=== PATIENT | male | born 1950 | race Caucasian/White ===

== ENCOUNTER 2017-05-07 10:35 | Inpatient (IN) | payer MEDICARE, OTHER ==
[~2017-05-07] VITALS: Ht 172.7 cm; Wt 74.8 kg
[2017-05-07] MEDS ORDERED: ASPIRIN 81 MG TAB.CHEW PO ONE (11:30)
[2017-05-07] MEDS ORDERED: NITROGLYCERIN SUBLINGUAL 0.4 MG BOTTLE OF 25. SL PRN ×2 (11:30→13:45)
[2017-05-07 11:34] LABS: BASO % 0 % (0-3); EOS % 0 % (0-3); HEMATOCRIT 46.3 % (39.0-53.0); LYMPH # 0.9 x10^3/uL (1.0-4.8); LYMPH % 5 % (24-48); MEAN CORPUSCULAR HEMOGLOBIN 32 pg (25-35); MEAN CORPUSCULAR HGB CONC 35 g/dL (31-37); MEAN CORPUSCULAR VOLUME 94 fL (79-100); MONO # 1.3 x10^3/uL (0.0-1.1); MONO % 6 % (0-9); NEUT # 18.4 x10^3uL (1.8-7.7); NEUT % 89 % (31-73); PLATELET COUNT 303 x10^3/uL (140-400); RED BLOOD COUNT 4.94 x10^6/uL (4.30-5.70); RED CELL DISTRIBUTION WIDTH 13.4 % (11.5-14.5); WHITE BLOOD COUNT 20.6 x10^3/uL (4.0-11.0)
--- NOTE | 2017-05-07 11:42 | RAD ---
Indication: Fever, cough, shortness of breath for one week. History of COPD. Technique: PA and lateral views of the chest Comparison: None Findings: Median sternotomy noted. Heart is normal in size. Lungs are hyperinflated. Focal consolidation is seen in the inferior aspect of the left upper lobe. Right lung is clear. No pneumothorax. Blunting of the left costophrenic angle noted. Visualized bony thorax is within normal limits. Impression: Findings suggesting left upper lobe pneumonia with small left pleural effusion.
--- NOTE | 2017-05-07 11:46 | PHYS DOC ---
General Chief Complaint: SHORTNESS OF BREATH Stated Complaint: COUGH,CONGESTION,FEVER,HX OF COPD Time Seen by MD: 11:06 Source: patient Exam Limitations: no limitations Problems: History of Present Illness Initial Comments Patient is a 66-year-old male who comes to the ED complaining of fever and cough. Patient states that for the past 3 days he's had worsening nonproductive cough and chest congestion, fever and chills, and dyspnea on exertion. Patient also states that throughout this 3 day. He's had left upper anterior chest pain worse with coughing, no new leg swelling, nausea vomiting diaphoresis arm or neck symptoms. Patient has history of COPD as well as coronary artery disease, he continues to smoke 1-1/2 packs per day and is fearful that he may have influenza or pneumonia. He denies any new or progressive chest pain complaints the last 12-24 hours and was trying to make it through the weekend without coming to the emergency department and follow-up with his doctor on Tuesday. Today the discomfort with his coughing had grown so severe that he asked his to bring him to the emergency department. Patient takes aspirin daily no other anticoagulation. ED vitals: 100.6, 105, 20, 140/61, 95% room air Timing/Duration: other Severity: severe Modifying Factors: worse with movement, improves with rest Associated Symptoms: chest pain, cough, fever/chills, malaise, shortness of breath Allergies: Coded Allergies: Ujevweg-Qlz-Fve Reductase Inhibitor (Verified Allergy, Unknown, 05/07/17) Past Medical History Medical History: COPD, CVA/TIA/stroke, heart disease, high cholesterol, hypertension, vascular disease Surgical History: other (4 vessel CABG 2000, bilateral lower extremity bypass grafts) Social History Smoker: cigarettes Alcohol: none Drugs: none Review of Systems Constitutional: see HPI Respiratory: see HPI Cardiovascular: see HPI Gastrointestinal: denies abdominal pain, denies nausea, denies vomiting Genitourinary: denies dysuria, denies frequency, denies hematuria Musculoskeletal: see HPI, denies back pain, denies joint swelling Psychiatric/Neurological: denies headache, pre-existing deficit (right-sided weakness from prior CVA.) Hematologic/Lymphatic: denies blood clots, denies easy bleeding, denies easy bruising Physical Exam General Appearance: no apparent distress Ear, Nose, Throat: hearing grossly normal, normal ENT inspection, normal pharynx Neck: non-tender, supple Respiratory: chest non-tender, no respiratory distress, decreased breath sounds (R base), accessory muscle use, rhonchi (JACOB), wheezing (diffusely) Cardiovascular: normal peripheral pulses, tachycardia Gastrointestinal: non tender, soft Extremities: normal range of motion, non-tender, normal inspection Neurologic/Psychiatric: alert, normal mood/affect, oriented x 3, other (mild R weakness (CVA sequelae)) Skin: normal color, warm/dry Orders, Labs, Meds EKG: Sinus tachycardia 116 bpm, PVC, PAC, no significant ST segment elevation interpreted by me. PATIENT: AYDEE CARPIO ACCOUNT: [id number] : 1950 LOCATION: ER AGE: 66 SEX: M EXAM STATUS: REG ER ORD. PHYSICIAN: NARCISO GIBBS DO REASON: fever, cough, h/o COPD PROCEDURE: CHEST PA & LATERAL Indication: Fever, cough, shortness of breath for one week. History of COPD. Technique: PA and lateral views of the chest Comparison: None Findings: Median sternotomy noted. Heart is normal in size. Lungs are hyperinflated. Focal consolidation is seen in the inferior aspect of the left upper lobe. Right lung is clear. No pneumothorax. Blunting of the left costophrenic angle noted. Visualized bony thorax is within normal limits. Impression: Findings suggesting left upper lobe pneumonia with small left pleural effusion. DICTATED AND SIGNED BY: ALVERTO ALARCON DO DATE: 05/07/17 1137 CC: DIMA JUARES MD; NARCISO GIBBS DO ~ 1157: Left upper lobe pneumonia noted, patient also wheezing diffusely without physical exam evidence of acute CHF. Rocephin and Zithromax ordered intravenously as well as Solu-Medrol, DuoNeb and CTA of the chest due to d- dimer 2.3. PATIENT: AYDEE CARPIO ACCOUNT: [id number] : 1950 LOCATION: ER AGE: 66 SEX: M EXAM STATUS: REG ER ORD. PHYSICIAN: NARCISO GIBBS DO REASON: cp, elev d-dimer PROCEDURE: CT ANGIOGRAPHY CHEST Indication: Shortness of breath with cough for one week. History of COPD. Technique: CT angiogram of the chest with 70 mL of Omnipaque 300 with multiplanar MIP reformats. Comparison: None Findings: Diagnostic quality AP study. There are no central, segmental or subsegmental filling defects in the pulmonary arteries. Enlarged mediastinal and hilar lymph nodes noted. Index lymph nodes as follows: Left paratracheal lymph node measuring 1.5 x 1.6 cm. Aortopulmonary recess lymph node measuring 1.1 x 1.9 cm. Left hilar lymph node measuring 1.6 x 2.4 cm Second left hilar lymph node measuring 2.1 x 1.5 cm. Neck bases clear. No axillary adenopathy. Heart is normal in size. Coronary artery calcifications noted. No pericardial effusion. Small left pleural effusion. Patchy areas of consolidation is seen in the left upper lobe and in the lingula with at bronchograms. Mild centrilobular emphysema noted. 3 mm nodule is seen in the right apex (series 4 image 12). Scattered patchy opacities are seen in the right lower lobe (series 4 image 97) (series 4 image 102). Hepatic steatosis noted. Otherwise, visualized sections through the liver, spleen, gallbladder, pancreas are within normal limits. Adrenal glands show nodular thickening which may be secondary to adenomatous hyperplasia. There is a 6 cm simple appearing cyst in the visualized left kidney. 2.1 x 1.2 cm superficial well-circumscribed low attenuating lesion is seen in the anterior left chest likely sebaceous or epidermoid cyst. Allograft no suspicious bony lesions. Impression: 1. No PE. 2. Left upper lobe pneumonia with small left pleural effusion. Few Patchy opacities in the right lower lobe may be secondary to multifocal pneumonia or aspiration. 3. Mediastinal and hilar lymphadenopathy likely reactive. Follow-up CT chest after medical therapy recommended to show resolution. 4. Hepatic steatosis. PQRS Compliance Statement: One or more of the following individualized dose reduction techniques were utilized for this examination: 1. Automated exposure control 2. Adjustment of the mA and/or kV according to patient size 3. Use of iterative reconstruction technique DICTATED AND SIGNED BY: ALVERTO ALARCON DO DATE: 05/07/17 2373 CC: DIMA JUARES MD; NARCISO GIBBS DO ~ Cultures obtained, white blood cells 20.6, bands 3, d-dimer 2.3, BUN 16, creatinine 1.4, lactic acid 1.9, troponin less than 0.017, BNP 961, influenza A and B both negative 1310: Patient rechecked, he is breathing much easier after Solu-Medrol, DuoNeb, and guaifenesin with codeine syrup. I discussed the need for inpatient treatment and although he is reluctant because of tomorrow Super Bowl he is agreeable to admission and further evaluation and treatment as necessary. 1338: I discussed patient with Dr. Jernigan superintendent container terminal hospitalist who accepts patient for admission. Is available he requests ICU but will accept telemetry inpatient admission if needed. Impressions: Multilobar pneumonia Chest pain with history of coronary artery disease COPD exacerbation Renal insufficiency Tobaccoism Departure Time of Disposition: 13:39 Disposition: 09 ADMITTED INPATIENT Condition: IMPROVED NARCISO GIBBS DO May 07, 2017 11:46
[2017-05-07 11:48] LABS: ALBUMIN 3.1 g/dL (3.4-5.0); ALBUMIN/GLOBULIN RATIO 0.6 (1.0-1.7); CALCIUM 9.2 mg/dL (8.5-10.1); CREATININE 1.4 mg/dL (0.7-1.3); GFR 50.4; POTASSIUM 3.9 mmol/L (3.5-5.1); TOTAL BILIRUBIN 1.5 mg/dL (0.2-1.0); TOTAL PROTEIN 8.1 g/dL (6.4-8.2)
[2017-05-07] MEDS ORDERED: cefTRIAXone SODIUM 1 GM VIAL IV ONE (11:57)
[2017-05-07] MEDS ORDERED: IV NORMAL SALINE 50ML 50 ML ONE (11:57)
[2017-05-07 12:00] LABS: % BANDS 3 % (0-9); % LYMPHS 4 % (24-48); % MONOS 7 % (0-10); % SEGS 86 % (35-66); PLT ESTIMATE ADEQUATE (ADEQUATE)
[2017-05-07] MEDS ORDERED: IPRATRPIUM/ALBUTEROL 0.5/2.5MG 3 ML NEBU. NEB ONE (12:00)
[2017-05-07] MEDS ORDERED: guaiFENesin/CODEINE 100mg/10mg 5 ML LIQUID PO ONE (12:00)
[2017-05-07] MEDS ORDERED: AZITHROMYCIN 500 MG in IV NORMAL SALINE 250ML 250 ML IV ONE (12:00)
[2017-05-07] MEDS ORDERED: methylPREDNISolone SOD SUCC PF 125 MG/2 ML VIAL. IV ONE (12:00)
[2017-05-07 12:01] LABS: TOXIC GRANULATION PRESENT; TOXIC VACUOLATION PRESENT
[2017-05-07 12:02] LABS: POLYCHROMASIA SLIGHT
[2017-05-07 12:12] LABS: INFLUENZA A PATIENT NEGATIVE (NEGATIVE); INFLUENZA B PATIENT NEGATIVE (NEGATIVE)
[2017-05-07] MEDS ORDERED: IOHEXOL 300 MG/ML 75 ML VIAL. IV ONE (12:15)
[2017-05-07] MEDS ORDERED: IV NORMAL SALINE 250ML 250 ML ONE (12:36)
[2017-05-07] MEDS ORDERED: AZITHROMYCIN 500 MG VIAL. IV ONE (12:37)
--- NOTE | 2017-05-07 13:02 | RAD ---
Indication: Shortness of breath with cough for one week. History of COPD. Technique: CT angiogram of the chest with 70 mL of Omnipaque 300 with multiplanar MIP reformats. Comparison: None Findings: Diagnostic quality AP study. There are no central, segmental or subsegmental filling defects in the pulmonary arteries. Enlarged mediastinal and hilar lymph nodes noted. Index lymph nodes as follows: Left paratracheal lymph node measuring 1.5 x 1.6 cm. Aortopulmonary recess lymph node measuring 1.1 x 1.9 cm. Left hilar lymph node measuring 1.6 x 2.4 cm Second left hilar lymph node measuring 2.1 x 1.5 cm. Neck bases clear. No axillary adenopathy. Heart is normal in size. Coronary artery calcifications noted. No pericardial effusion. Small left pleural effusion. Patchy areas of consolidation is seen in the left upper lobe and in the lingula with at bronchograms. Mild centrilobular emphysema noted. 3 mm nodule is seen in the right apex (series 4 image 12). Scattered patchy opacities are seen in the right lower lobe (series 4 image 97) (series 4 image 102). Hepatic steatosis noted. Otherwise, visualized sections through the liver, spleen, gallbladder, pancreas are within normal limits. Adrenal glands show nodular thickening which may be secondary to adenomatous hyperplasia. There is a 6 cm simple appearing cyst in the visualized left kidney. 2.1 x 1.2 cm superficial well-circumscribed low attenuating lesion is seen in the anterior left chest likely sebaceous or epidermoid cyst. Allograft no suspicious bony lesions. Impression: 1. No PE. 2. Left upper lobe pneumonia with small left pleural effusion. Few Patchy opacities in the right lower lobe may be secondary to multifocal pneumonia or aspiration. 3. Mediastinal and hilar lymphadenopathy likely reactive. Follow-up CT chest after medical therapy recommended to show resolution. 4. Hepatic steatosis. PQRS Compliance Statement: One or more of the following individualized dose reduction techniques were utilized for this examination: 1. Automated exposure control 2. Adjustment of the mA and/or kV according to patient size 3. Use of iterative reconstruction technique
[2017-05-07] MEDS ORDERED: ONDANSETRON PF 4 MG/2 ML VIAL. IV PRN (13:45)
[2017-05-07] MEDS ORDERED: guaiFENesin/CODEINE 100mg/10mg 5 ML LIQUID PO PRN (13:45)
[2017-05-07] MEDS ORDERED: ACETAMINOPHEN 325 MG TABLET PO PRN (13:45)
[2017-05-07 14:19] VITALS: BP 148/70
[2017-05-07 14:22] VITALS: BP 148/70
[2017-05-07] MEDS ORDERED: LISI1TAB5 PO (14:31)
[2017-05-07] MEDS ORDERED: ASPI325T8 PO (14:31)
[2017-05-07] MEDS ORDERED: FLU VACC QS2017-18 (36MOS+)/PF 0.5 ML SYRINGE. VAX IM ONE (15:30)
[2017-05-07] MEDS ORDERED: chlordiazePOXIDE HCL 25 MG CAPSULE PO PRN (16:15)
[2017-05-07] MEDS: IPRATRPIUM/ALBUTEROL 0.5/2.5MG 3 ML NEBU. NEB SCH ×2 (16:45→21:25)
[2017-05-07] MEDS: cefTRIAXone IV Push 1 GM VIAL. IVP SCH (18:02)
--- NOTE | 2017-05-07 20:36 | HP ---
ADMIT DATE: 05/07/2017 HISTORY OF PRESENT ILLNESS: The patient is a 66-year-old male patient who came to the Emergency Room with a complaint of fever and cough that has been going on for the last 3 days with worsening nonproductive cough and chest congestion, fever, chills, dyspnea on exertion and throughout the last 3 days, he also complained of left upper anterior chest pain, worse with coughing, but denied any leg swelling. Denied any phlegm or hemoptysis. The patient stated that he is fearful that he might have influenza or pneumonia. He was basically evaluated in the Emergency Room, was found to have marked leukocytosis with a white cell count of 20,000, elevated D-dimer. His serology was negative for influenza A and B and had had a CT angiogram, which basically showed no pulmonary embolism, has left upper lobe pneumonia and small left pleural effusion, has few patchy opacities in the right lower lobe, may be secondary to multifocal pneumonia or aspiration. He has also mediastinal hilar lymphadenopathy, likely reactive as well as hepatic steatosis. The radiologist recommended a followup CT chest after medical therapy to show resolution. The patient was admitted with COPD exacerbation, community-acquired pneumonia and here he is to continue with IV antibiotic, steroid treatment, as well as bronchodilator. He is a heavy alcohol drinker and continues to smoke heavily up to 1-1/2 pack a day. PAST MEDICAL HISTORY: Significant for COPD, hypertension, hyperlipidemia, coronary artery disease status post CABG and peripheral vascular disease, status post stenting, as well as bilateral lower extremity bypass grafting. He has also had CVA and TIA with right-sided weakness. He continued to have residual right-sided hemiparesis and also he is unsteady on his gait because of that. PAST SURGICAL HISTORY: Significant for percutaneous coronary intervention with stent deployment and also stent deployment to both lower extremity arteries. He has coronary artery disease status post CABG and also bilateral femoropopliteal bypass graft surgery. He has had jaw surgery, and colonoscopy. ALLERGIES: HE IS INTOLERANT TO STATINS, SEVERE ACHES, PAINS AND ARTHRALGIAS, ARTHRITIS and is unable to walk because it is severe with Crestor according to him. MEDICATIONS: He is currently on following medications: He is on aspirin 325 mg once a day, lisinopril/hydrochlorothiazide 20/12.5 mg 1 tablet once a day. FAMILY HISTORY: He has 1 older sister at the age of 58 because of the CVA. His father at the age of 60 because of myocardial infarction. Mother at the age of 60 because of stroke. He has one brother younger, has lung cancer, hypertension and one sister still alive, but does not keep in touch with her. SOCIAL HISTORY: He is , has no children. He smokes 1-1/2 pack a day, smokes multi cigars. He drinks mostly hard liquor on a daily basis; however, he denied any delirium tremens or alcohol withdrawal seizures. He is retired from the [employer]. REVIEW OF SYSTEMS: The patient denied any blurring of vision, cataract, glaucoma or macular degeneration. Denied any earache, tinnitus or sensorineural deafness. Denied any nosebleeds, stuffy nose or postnasal drip. Denied any sore throat, sore tongue, toothache, hoarseness of voice or difficulty swallowing. Denied any nausea, vomiting, diarrhea or constipation. Denied any hematemesis, melena or hematochezia. Denied any dysuria, frequency or hematuria. He did complain of chest pain that has resolved. He has cough, which is mostly dry, nonproductive, did complain of shortness of breath, fever or chills. Denied any dizziness, lightheadedness, or vertigo. He has residual weakness in the right side using a cane and he is unsteady and has fallen sometimes. PHYSICAL EXAMINATION: GENERAL: On arrival to the Emergency Room, he looked well and was clearly in no apparent respiratory distress, pale, but no jaundice, cyanosis or thyromegaly. No jugular venous distention. No lower limb edema. VITAL SIGNS: His heart rate was 105, blood pressure was 129/80, temperature was 100.6, respiratory rate was 20, and oxygen saturation was 95% on room air. HEENT: Showed normocephalic, atraumatic. NECK: Supple. HEART: Showed normal first and second heart sounds with no gallop, rub or murmur. CHEST: Shows central trachea, equal bilateral expansion, air entry, vesicular breath sounds. I could not really appreciate any crepitation or rhonchi. ABDOMEN: Slightly distended, soft, nontender. No guarding or rigidity. No organomegaly. Hernial orifice intact. Bowel sounds normal. NEUROLOGIC: He is awake, alert, responding appropriately. Cranial nerves intact. EXTREMITIES: He moves extremities without difficulty, ambulates with a cane. LABORATORY DATA: On arrival showed a white cell count of 20,600, hemoglobin was 16, hematocrit 46, MCV 94 and platelet count of 303,000 with a manual differential showed 89% polymorphs, 5% lymphocytes, and 6% monocytes. Serum sodium was 134, potassium 3.9, chloride 94, bicarbonate 29, anion gap of 11, BUN 16, creatinine 1.4, estimated GFR was 50 mL per minute, his glucose 132, lactic acid was 1.9. Calcium was 9.2. Total bilirubin 1.5. AST, ALT, alkaline phosphatase were normal. His beta natriuretic peptide was high at 961. Total protein was 8.1. His albumin was 3.1, lipase was 114. His D-dimer was 2.30. His influenza A and B were negative. He has a chest x-ray, which basically showed the patient has mediastinal sternotomy noted. Heart is normal in size. Lungs are hyperinflated. Focal consolidation seen in the inferior aspect of the left upper lobe. Right lung is clear, no pneumothorax. Blunting of left costophrenic angle is noted. Visualized bony thorax is within normal limits. The CT angio showed no evidence of pulmonary embolism; however, he has left upper lobe pneumonia and small pleural effusion, few patchy opacities in the right lower lobe, may be secondary to multifocal pneumonia or aspiration. He has mediastinal hilar lymphadenopathy, likely reactive. Followup CT scan after medical family therapy recommended showed resolution. He has also hepatic steatosis. IMPRESSION: In summary, this is a 66-year-old male patient who was admitted with a community-acquired pneumonia, chronic obstructive pulmonary disease exacerbation, tobaccoism, alcoholism and mild renal insufficiency. PLAN: To continue with IV antibiotic. Continue with his home medication and I will add steroids and bronchodilators as well as Singulair and Pulmicort and will repeat all his lab works tomorrow and decide the further management according to his response. MLEVA LAKHANI MD DR: PORSHA/satish JOB#: [id number] / [id number]
[2017-05-07] MEDS: MONTELUKAST 10 MG TABLET. PO SCH (20:38)
[2017-05-07] MEDS: methylPREDNISolone SOD SUCC PF 40 MG/ML VIAL. IV SCH (20:38)
[2017-05-07 20:50] VITALS: BP 127/70
[2017-05-07 22:54] VITALS: BP 117/56
[2017-05-08] MEDS: methylPREDNISolone SOD SUCC PF 40 MG/ML VIAL. IV SCH ×2 (05:21→13:59)
[2017-05-08] MEDS: IPRATRPIUM/ALBUTEROL 0.5/2.5MG 3 ML NEBU. NEB SCH ×2 (05:24→10:58)
[2017-05-08 06:41] VITALS: BP 145/69
[2017-05-08 08:03] LABS: BASO % 0 % (0-3); EOS % 0 % (0-3); HEMATOCRIT 43.9 % (39.0-53.0); HEMOGLOBIN 15.2 g/dL (13.0-17.5); LYMPH # 0.5 x10^3/uL (1.0-4.8); LYMPH % 2 % (24-48); MEAN CORPUSCULAR HEMOGLOBIN 32 pg (25-35); MEAN CORPUSCULAR HGB CONC 35 g/dL (31-37); MEAN CORPUSCULAR VOLUME 94 fL (79-100); MONO # 0.5 x10^3/uL (0.0-1.1); MONO % 2 % (0-9); NEUT # 18.8 x10^3uL (1.8-7.7); NEUT % 95 % (31-73); PLATELET COUNT 279 x10^3/uL (140-400); RED BLOOD COUNT 4.69 x10^6/uL (4.30-5.70); RED CELL DISTRIBUTION WIDTH 13.7 % (11.5-14.5); WHITE BLOOD COUNT 19.8 x10^3/uL (4.0-11.0)
[2017-05-08 08:22] LABS: ALBUMIN 2.7 g/dL (3.4-5.0); ALBUMIN/GLOBULIN RATIO 0.7 (1.0-1.7); CREATININE 1.3 mg/dL (0.7-1.3); GFR 54.9; TOTAL BILIRUBIN 0.4 mg/dL (0.2-1.0); TOTAL PROTEIN 6.7 g/dL (6.4-8.2)
[2017-05-08 08:27] LABS: POTASSIUM 2.9 mmol/L (3.5-5.1)
[2017-05-08] MEDS: ASPIRIN 325 MG TABLET PO SCH (08:39)
[2017-05-08] MEDS: hydroCHLOROthiazide 12.5 MG CAPSULE PO SCH (08:39)
[2017-05-08] MEDS: LISINOPRIL 20 MG TABLET PO SCH (08:39)
[2017-05-08] MEDS: FOLIC ACID 1 MG TABLET PO SCH (08:40)
[2017-05-08] MEDS: MULTIVITAMIN with MINERAL TABLET. PO SCH (08:40)
[2017-05-08] MEDS: THIAMINE IM 200 MG/2 ML VIAL. IM SCH (08:41)
[2017-05-08] MEDS ORDERED: NON FORMULARY ITEM (Lisinopril/Hydrochlorothiazide (Lisinopril-Hctz 20-12.5 Mg Tab) 1 TAB) PO SCH (09:00)
[2017-05-08] MEDS ORDERED: POTASSIUM CHLORIDE 20 MEQ TABLET.ER. PO ONE ×2 (09:00→10:00)
[2017-05-08 11:02] VITALS: BP 127/73
[2017-05-08 14:45] VITALS: BP 116/64
[2017-05-08] MEDS ORDERED: AZITHROMYCIN 500 MG in IV NORMAL SALINE 250ML 250 ML IV SCH (15:00)
[2017-05-08] MEDS: cefTRIAXone IV Push 1 GM VIAL. IVP SCH (16:18)
[2017-05-08] MEDS ORDERED: IPRATRPIUM/ALBUTEROL 0.5/2.5MG 3 ML NEBU. NEB PRN (16:30)
[2017-05-08 19:24] VITALS: BP 135/67
[2017-05-08] MEDS ORDERED: FLU VACC QS2017-18 (36MOS+)/PF 0.5 ML SYRINGE. VAX IM ONE (20:00)
[2017-05-08] MEDS: LACTOBACILLUS RHAMNOSUS GG 1 CAPSULE. PO SCH (21:15)
[2017-05-08] MEDS: POTASSIUM CHLORIDE 20 MEQ TABLET.ER. PO SCH (21:15)
[2017-05-08] MEDS: MONTELUKAST 10 MG TABLET. PO SCH (21:15)
[2017-05-08] MEDS ORDERED: MELATONIN 3 MG TABLET PO PRN (22:15)
[2017-05-08 23:00] VITALS: BP 153/51
[2017-05-09] MEDS ORDERED: methylPREDNISolone SOD SUCC PF 40 MG/ML VIAL. IV SCH (02:00)
[2017-05-09 05:28] VITALS: BP 111/62
[2017-05-09 06:44] LABS: HEMATOCRIT 43.2 % (39.0-53.0); HEMOGLOBIN 14.7 g/dL (13.0-17.5); RED BLOOD COUNT 4.57 x10^6/uL (4.30-5.70); RED CELL DISTRIBUTION WIDTH 13.5 % (11.5-14.5); WHITE BLOOD COUNT 22.9 x10^3/uL (4.0-11.0)
[2017-05-09 06:52] LABS: ALBUMIN 2.4 g/dL (3.4-5.0); ALBUMIN/GLOBULIN RATIO 0.6 (1.0-1.7); CALCIUM 8.8 mg/dL (8.5-10.1); CREATININE 1.1 mg/dL (0.7-1.3); GFR 66.6; POTASSIUM 4.5 mmol/L (3.5-5.1); TOTAL BILIRUBIN 0.2 mg/dL (0.2-1.0); TOTAL PROTEIN 6.7 g/dL (6.4-8.2)
[2017-05-09] MEDS ORDERED: LEVO750T31 PO (08:42)
[2017-05-09] MEDS ORDERED: PRED-220 PO (08:42)
[2017-05-09 08:55] VITALS: BP 111/62
[2017-05-09] MEDS: ASPIRIN 325 MG TABLET PO SCH (08:55)
[2017-05-09] MEDS: LACTOBACILLUS RHAMNOSUS GG 1 CAPSULE. PO SCH (08:55)
[2017-05-09] MEDS: LISINOPRIL 20 MG TABLET PO SCH (08:55)
[2017-05-09] MEDS: MULTIVITAMIN with MINERAL TABLET. PO SCH (08:55)
[2017-05-09] MEDS: FOLIC ACID 1 MG TABLET PO SCH (08:55)
[2017-05-09] MEDS: hydroCHLOROthiazide 12.5 MG CAPSULE PO SCH (08:55)
[2017-05-09] MEDS: POTASSIUM CHLORIDE 20 MEQ TABLET.ER. PO SCH (08:56)
[2017-05-09] MEDS: THIAMINE IM 200 MG/2 ML VIAL. IM SCH (08:56)
--- NOTE | 2017-05-09 11:20 | PN ---
DATE: 05/08/2017 SUBJECTIVE: The patient is resting, slightly propped up in bed, in no apparent distress, has no more chest pain. He continued to have mild chest tightness and wheezing. Generally, feeling much better. His potassium was low this morning at 2.9. PHYSICAL EXAMINATION: GENERAL: When I examined him, he looked well and was clearly in no apparent respiratory distress, no pallor, jaundice, cyanosis, or thyromegaly. No jugular venous distension. No limb edema. VITAL SIGNS: His heart rate was 100, blood pressure 116/64, temperature was 98.4, respiratory rate 20, and oxygen saturation was 92% on room air. HEAD, EYES, EARS, NOSE AND THROAT: Showed he is normocephalic, atraumatic. NECK: Supple. HEART: Showed normal first and second heart sounds with no gallop, rub or murmur. CHEST: Clear to auscultation. Chest showed central trachea, equal bilateral expansion, air entry, ____ few bilateral scattered rhonchi, more so on the left than the right. I could not appreciate any crepitation. ABDOMEN: Slightly distended, soft, nontender. NEUROLOGIC: He was awake, alert, responding appropriately. Cranial nerves intact. He moves extremities without difficulty. He ambulates without assistance or assistive devices. LABORATORY DATA: Showed a white cell count of 19,800, hemoglobin 15, hematocrit 44, MCV 94 and platelet count 279,000. His serum sodium this morning was 140, potassium 2.9, chloride 100, bicarbonate 27, anion gap of 13, BUN 29, creatinine 1.3, estimated GFR was 54 mL per minute. His glucose was 197, calcium was 9. Total bilirubin, AST, ALT, alkaline phosphatase were normal. He has 3 sets of cardiac enzymes that were negative. His serum triglycerides were 117, total cholesterol was 161, LDL was 115, VLDL was 23, and HDL was 23, ratio was 7. ASSESSMENT: 1. Community-acquired pneumonia for which he is on IV Rocephin and Zithromax. 2. Chronic obstructive pulmonary edema exacerbation for which he is on bronchodilator and methylprednisolone. 3. Acute kidney injury and his other problems include hypertension, hyperlipidemia, has history of peripheral vascular disease status post bilateral lower extremity bypass grafting, coronary artery disease status post coronary artery bypass graft surgery. He has also alcohol dependence and nicotine dependence. PLAN: To continue with IV Rocephin and Zithromax. Continue to start replenishing his potassium. We already gave him about 80 mEq a day and continue with alcohol withdrawal protocol and if he remains stable tomorrow, we can discharge him home on oral antibiotic and tapering course of steroids. MELVA LAKHANI MD DR: PORSHA/satish JOB#: [id number] / [id number]
--- NOTE | 2017-05-09 15:55 | PDOC3 ---
Discharge Summary Visit Information Date of Admission: May 07, 2017 Date of Discharge: May 09, 2017 Final Diagnosis Problems Medical Problems: (1) COPD exacerbation Status: Acute (2) Pneumonia Status: Acute 1. Community-acquired pneumonia for which he is on IV Rocephin and Zithromax. MUltifocal pneumonia 2. Chronic obstructive pulmonary edema exacerbation for which he is on bronchodilator and methylprednisolone. 3. Acute kidney injury and his other problems include hypertension, hyperlipidemia, has history of peripheral vascular disease status post bilateral lower extremity bypass grafting, coronary artery disease status post coronary artery bypass graft surgery. He has also alcohol dependence and nicotine dependence. 4 mediastinal and hilar adenopathy 5. sever protein calorie malnutirtion 6. acute hypoxic respiratory 7. elevated d dimer 8 hypokalemia-resolved Problems: Brief Hospital Course Allergies Allergies Coded Allergies Type Severity Reaction Last Updated Verified Fsmztwp-Vvx-Vac Reductase Inhibitor Allergy Unknown 05/07/17 Yes Vital Signs Vital Signs Date Time Temp Pulse Resp B/P (MAP) Pulse Ox O2 Delivery O2 Flow Rate FiO2 05/09/17 08:55 66 111/62 05/09/17 08:00 Room Air 05/09/17 05:28 97.6 20 97 05/08/17 19:24 2.0 Lab Results Laboratory Tests Test 05/07/17 18:55 05/08/17 07:30 05/08/17 14:45 05/09/17 06:14 Troponin I Quantitative < 0.017 ng/mL (0-0.055) < 0.017 ng/mL (0-0.055) White Blood Count 19.8 x10^3/uL (4.0-11.0) 22.9 x10^3/uL (4.0-11.0) Red Blood Count 4.69 x10^6/uL (4.30-5.70) 4.57 x10^6/uL (4.30-5.70) Hemoglobin 15.2 g/dL (13.0-17.5) 14.7 g/dL (13.0-17.5) Hematocrit 43.9 % (39.0-53.0) 43.2 % (39.0-53.0) Mean Corpuscular Volume 94 fL (79-100) 95 fL (79-100) Mean Corpuscular Hemoglobin 32 pg (25-35) 32 pg (25-35) Mean Corpuscular Hemoglobin Concent 35 g/dL (31-37) 34 g/dL (31-37) Red Cell Distribution Width 13.7 % (11.5-14.5) 13.5 % (11.5-14.5) Platelet Count 279 x10^3/uL (140-400) 316 x10^3/uL (140-400) Neutrophils (%) (Auto) 95 % (31-73) Lymphocytes (%) (Auto) 2 % (24-48) Monocytes (%) (Auto) 2 % (0-9) Eosinophils (%) (Auto) 0 % (0-3) Basophils (%) (Auto) 0 % (0-3) Neutrophils # (Auto) 18.8 x10^3uL (1.8-7.7) Lymphocytes # (Auto) 0.5 x10^3/uL (1.0-4.8) Monocytes # (Auto) 0.5 x10^3/uL (0.0-1.1) Eosinophils # (Auto) 0.0 x10^3/uL (0.0-0.7) Basophils # (Auto) 0.0 x10^3/uL (0.0-0.2) Sodium Level 140 mmol/L (136-145) 142 mmol/L (136-145) Potassium Level 2.9 mmol/L (3.5-5.1) 3.4 mmol/L (3.5-5.1) 4.5 mmol/L (3.5-5.1) Chloride Level 100 mmol/L (98-107) 106 mmol/L (98-107) Carbon Dioxide Level 27 mmol/L (21-32) 28 mmol/L (21-32) Anion Gap 13 (6-14) 8 (6-14) Blood Urea Nitrogen 29 mg/dL (8-26) 39 mg/dL (8-26) Creatinine 1.3 mg/dL (0.7-1.3) 1.1 mg/dL (0.7-1.3) Estimated GFR (Cockcroft-Gault) 54.9 66.6 BUN/Creatinine Ratio 22 (6-20) 35 (6-20) Glucose Level 197 mg/dL (70-99) 136 mg/dL (70-99) Calcium Level 9.0 mg/dL (8.5-10.1) 8.8 mg/dL (8.5-10.1) Total Bilirubin 0.4 mg/dL (0.2-1.0) 0.2 mg/dL (0.2-1.0) Aspartate Amino Transf (AST/SGOT) 13 U/L (15-37) 11 U/L (15-37) Alanine Aminotransferase (ALT/SGPT) 18 U/L (16-63) 19 U/L (16-63) Alkaline Phosphatase 95 U/L (46-116) 81 U/L (46-116) Total Protein 6.7 g/dL (6.4-8.2) 6.7 g/dL (6.4-8.2) Albumin 2.7 g/dL (3.4-5.0) 2.4 g/dL (3.4-5.0) Albumin/Globulin Ratio 0.7 (1.0-1.7) 0.6 (1.0-1.7) Triglycerides Level 117 mg/dL (0-150) Cholesterol Level 161 mg/dL (0-200) LDL Cholesterol, Calculated 115 mg/dL (0-100) VLDL Cholesterol, Calculated 23 mg/dL (0-40) Non-HDL Cholesterol Calculated 138 mg/dL (0-129) HDL Cholesterol 23 mg/dL (40-60) Cholesterol/HDL Ratio 7.0 Brief Hospital Course Mr. Martinez is a 66 old [sex] who presented with [ ] ADMIT DATE: 05/07/2017 HISTORY OF PRESENT ILLNESS: The patient is a 66-year-old male patient who came to the Emergency Room with a complaint of fever and cough that has been going on for the last 3 days with worsening nonproductive cough and chest congestion, fever, chills, dyspnea on exertion and throughout the last 3 days, he also complained of left upper anterior chest pain, worse with coughing, but denied any leg swelling. Denied any phlegm or hemoptysis. The patient stated that he is fearful that he might have influenza or pneumonia. He was basically evaluated in the Emergency Room, was found to have marked leukocytosis with a white cell count of 20,000, elevated D-dimer. His serology was negative for influenza A and B and had had a CT angiogram, which basically showed no pulmonary embolism, has left upper lobe pneumonia and small left pleural effusion, has few patchy opacities in the right lower lobe, may be secondary to multifocal pneumonia or aspiration. He has also mediastinal hilar lymphadenopathy, likely reactive as well as hepatic steatosis. The radiologist recommended a followup CT chest after medical therapy to show resolution. The patient was admitted with COPD exacerbation, community-acquired pneumonia and here he is to continue with IV antibiotic, steroid treatment, as well as bronchodilator. He is a heavy alcohol drinker and continues to smoke heavily up to 1-1/2 pack a day. He was treated with IV steroids. breathing treatments and Iv antibiotics. He improved daily and was ready for discharge on 05/09 Discharge Information Condition at Discharge: Improved, Stable Disposition/Orders: D/C to Home Dischare Medications Current Medications Aspirin (Children'S Aspirin) 324 mg 1X ONCE PO Last administered on 05/07/17at 11:39; Start 05/07/17 at 11:30; Stop 05/07/17 at 11:31; Status DC Nitroglycerin (Nitrostat) 0.4 mg PRN Q5MIN PRN SL CP RATING > 1/10 Last administered on 05/07/17at 11:41; Start 05/07/17 at 11:30; Stop 05/07/17 at 13:44; Status DC Ceftriaxone Sodium 1 gm/ Sodium Chloride 50 ml @ 100 mls/hr 1X ONCE IV Last administered on 05/07/17at 12:03; Start 05/07/17 at 12:00; Stop 05/07/17 at 12:29; Status DC Azithromycin 500 mg/Sodium Chloride 250 ml @ 250 mls/hr 1X ONCE IV Last administered on 05/07/17at 12:59; Start 05/07/17 at 12:00; Stop 05/07/17 at 12:59; Status DC Albuterol/ Ipratropium (Duoneb) 3 ml 1X ONCE NEB Last administered on at 12:53; Start 05/07/17 at 12:00; Stop 05/07/17 at 12:02; Status DC Methylprednisolone Sodium Succinate (SOLU-Medrol 125MG VIAL) 125 mg 1X ONCE IV Last administered on 05/07/17at 12:55; Start 05/07/17 at 12:00; Stop 05/07/17 at 12:02; Status DC Guaifenesin/ Codeine Phosphate (Robitussin Ac) 5 ml 1X ONCE PO Last administered on 05/07/17at 12:57; Start 05/07/17 at 12:00; Stop 05/07/17 at 12:02; Status DC Sodium Chloride 50 ml @ As Directed STK-MED ONCE .ROUTE ; Start 05/07/17 at 11:57 ; Stop 05/07/17 at 11:58; Status DC Ceftriaxone Sodium (Rocephin) 1 gm STK-MED ONCE IV ; Start 05/07/17 at 11:57; Stop 05/07/17 at 11:58; Status DC Iohexol (Omnipaque 300 Mg/ml) 75 ml 1X ONCE IV ; Start 05/07/17 at 12:15; Stop 05/07/17 at 12:16; Status DC Sodium Chloride 250 ml @ As Directed STK-MED ONCE .ROUTE ; Start 05/07/17 at 12: 36; Stop 05/07/17 at 12:37; Status DC Azithromycin (Zithromax) 500 mg STK-MED ONCE IV ; Start 05/07/17 at 12:37; Stop 05/07/17 at 12:38; Status DC Ondansetron HCl (Zofran) 4 mg PRN Q4HRS PRN IV NAUSEA/VOMITING; Start 05/07/17 at 13:45; Stop 05/08/17 at 13:44; Status DC Acetaminophen (Tylenol) 650 mg PRN Q4HRS PRN PO FEVER Last administered on at 20:38; Start 05/07/17 at 13:45; Stop 05/08/17 at 13:44; Status DC Nitroglycerin (Nitrostat) 0.4 mg PRN Q5MIN PRN SL CHEST PAIN; Start 05/07/17 at 13:45; Stop 05/08/17 at 13:44; Status DC Albuterol/ Ipratropium (Duoneb) 3 ml RTQID NEB Last administered on 05/08/17at 10 :58; Start 05/07/17 at 16:00; Stop 05/08/17 at 15:59; Status DC Guaifenesin/ Codeine Phosphate (Robitussin Ac) 5 ml PRN Q6HRS PRN PO COUGH Last administered on 05/08/17at 22:36; Start 05/07/17 at 13:45; Stop 05/09/17 at 10: 08; Status DC Influenza Virus Vaccine Quadrival (Fluarix Quad [id number] Syringe) 0.5 ml ONCE ONCE VAX IM ; Start 05/07/17 at 15:30; Stop 05/07/17 at 21:47; Status DC Methylprednisolone Sodium Succinate (SOLU-Medrol 40MG VIAL) 40 mg Q8HRS IV Last administered on 05/08/17at 13:59; Start 05/07/17 at 22:00; Stop 05/08/17 at 16: 25; Status DC Montelukast Sodium (Singulair) 10 mg QHS PO Last administered on 05/08/17at 21:15 ; Start 05/07/17 at 21:00; Stop 05/09/17 at 10:08; Status DC Ceftriaxone Sodium 1 gm/ Sodium Chloride 50 ml @ 100 mls/hr Q24H IV ; Start 05/07/17 at 16:15; Stop 05/07/17 at 16:23; Status DC Aspirin (Celia Aspirin) 325 mg DAILY PO Last administered on 05/09/17at 08:55; Start 05/08/17 at 09:00; Stop 05/09/17 at 10:08; Status DC Non-Formulary Medication 1 tab DAILY PO ; Start 05/08/17 at 09:00; Stop 05/08/17 at 09:00; Status DC Multivitamins/ Calcium (Thera-M Plus) 1 tab DAILY PO Last administered on at 08:55; Start 05/08/17 at 09:00; Stop 05/09/17 at 10:08; Status DC Folic Acid (Folic Acid) 1 mg DAILY PO Last administered on 05/09/17at 08:55; Start 05/08/17 at 09:00; Stop 05/09/17 at 10:08; Status DC Thiamine HCl 100 mg DAILY IM ; Start 05/08/17 at 09:00; Stop 05/09/17 at 10:08; Status DC Chlordiazepoxide (Librium) 50 mg PRN Q1HR PRN PO For CIWA 8-14 Last administered on 05/07/17at 20:38; Start 05/07/17 at 16:15; Stop 05/09/17 at 10:08; Status DC Ceftriaxone Sodium (Rocephin) 1 gm Q24H IVP Last administered on 05/08/17 16:18 ; Start 05/07/17 at 16:30; Stop 05/09/17 at 10:08; Status DC Lisinopril (Prinivil) 20 mg DAILY PO Last administered on 05/09/17at 08:55; Start 05/08/17 at 09:00; Stop 05/09/17 at 10:08; Status DC Hydrochlorothiazide (Microzide) 12.5 mg DAILY PO Last administered on 05/09/17at 08:55; Start 05/08/17 at 09:00; Stop 05/09/17 at 10:08; Status DC Influenza Virus Vaccine Quadrival (Fluarix Quad [id number] Syringe) 0.5 ml ONCE ONCE VAX IM Last administered on 05/09/17 08:58; Start 05/08/17 at 20:00; Stop 05/08/17 at 20:01; Status DC Potassium Chloride (Klor-Con) 40 meq 1X ONCE PO Last administered on 05/08/17at 10:34; Start 05/08/17 at 09:00; Stop 05/08/17 at 09:36; Status DC Potassium Chloride (Klor-Con) 40 meq 1X ONCE PO Last administered on 05/08/17at 11:42; Start 05/08/17 at 10:00; Stop 05/08/17 at 10:01; Status DC Lactobacillus Rhamnosus (Culturelle) 1 cap BID PO Last administered on at 08:55; Start 05/08/17 at 21:00; Stop 05/09/17 at 10:08; Status DC Azithromycin 500 mg/Sodium Chloride 250 ml @ 250 mls/hr Q24H IV Last administered on 05/08/17at 16:11; Start 05/08/17 at 15:00; Stop 05/09/17 at 10:08; Status DC Potassium Chloride (Klor-Con) 20 meq TID PO Last administered on 05/09/17 08:56 ; Start 05/08/17 at 21:00; Stop 05/09/17 at 10:08; Status DC Methylprednisolone Sodium Succinate (SOLU-Medrol 40MG VIAL) 40 mg Q12H IV Last administered on 05/09/17at 02:19; Start 05/09/17 at 02:00; Stop 05/09/17 at 10:08; Status DC Albuterol/ Ipratropium (Duoneb) 3 ml PRN QID PRN NEB SHORTNESS OF BREATH; Start 05/08/17 at 16:30; Stop 05/09/17 at 10:08; Status DC Melatonin 6 mg PRN QHS PRN PO INSOMNIA Last administered on 05/08/17at 22:36; Start 05/08/17 at 22:15; Stop 05/09/17 at 10:08; Status DC Active Scripts Active Prednisone 10 Mg Tablet 10 Mg PO DAILY 40MG/DX2, 30MG/DX3, 20MG/DX2, 10MG/DX2 THEN STOP. START ON 05/10 Levaquin (Levofloxacin) 750 Mg Tablet 1 Tab PO DAILY Reported Aspirin 325 Mg Tablet 1 Tab PO DAILY LAST DOSE GIVEN: DATE: TODAY TIME: AM NEXT DOSE DUE: DATE: TOMORROW TIME: AM Lisinopril-Hctz 20-12.5 Mg Tab (Lisinopril/Hydrochlorothiazide) 1 Each Tablet 1 Tab PO DAILY LAST DOSE GIVEN: DATE: TODAY TIME: AM NEXT DOSE DUE: DATE: TOMORROW TIME: AM Patient Instructions Patient Instuctions Discharge instructions were typed on the emar for the patient. MRAD done by physician. ESTRELLA HDEZ DO May 09, 2017 15:55
== END 2017-05-09 09:55 | disposition home or self-care (01) | DRG 682 ==
LOC: ER 10:35 → 1 SOUTH 14:02
PROVIDERS: ADMIT Internal Medicine; ATTEND Internal Medicine
DX: N17.9 Acute kidney failure, unspecified (principal); J18.1 Lobar pneumonia, unspecified organism; E43 Unspecified severe protein-calorie malnutrition; J81.0 Acute pulmonary edema; J81.1 Chronic pulmonary edema; J90 Pleural effusion, not elsewhere classified; I69.351 Hemiplegia and hemiparesis following cerebral infarction affecting right dominant side; J44.0 Chronic obstructive pulmonary disease with (acute) lower respiratory infection; J44.1 Chronic obstructive pulmonary disease with (acute) exacerbation; K76.0 Fatty (change of) liver, not elsewhere classified; E78.5 Hyperlipidemia, unspecified; E87.6 Hypokalemia; F10.20 Alcohol dependence, uncomplicated; F17.210 Nicotine dependence, cigarettes, uncomplicated; I10 Essential (primary) hypertension; I25.10 Atherosclerotic heart disease of native coronary artery without angina pectoris; I73.9 Peripheral vascular disease, unspecified; R09.02 Hypoxemia; R79.1 Abnormal coagulation profile; G47.00 Insomnia, unspecified; R59.0 Localized enlarged lymph nodes; Z79.82 Long term (current) use of aspirin; Z79.899 Other long term (current) drug therapy; Z80.1 Family history of malignant neoplasm of trachea, bronchus and lung; Z82.3 Family history of stroke; Z82.49 Family history of ischemic heart disease and other diseases of the circulatory system; Z95.1 Presence of aortocoronary bypass graft; Z95.5 Presence of coronary angioplasty implant and graft; Z88.8 Allergy status to other drugs, medicaments and biological substances; Z68.25 Body mass index [BMI] 25.0-25.9, adult
CPT/HCPCS: 36415; 71046; 71275; 80053; 80061; 82550; 83605; 83690; 83880; 84132; 84484; 85007; 85025; 85027; 85379; 87040; 87804; 90686; 94640; 96374; J0456; J0696; J2920; J2930; J7050; J7620; 99285-25